=== PATIENT | female | born 1990 | race Caucasian/White ===

== ENCOUNTER 2017-09-29 22:04 | Emergency (ER) | payer BC, OTHER ==
[~2017-09-29] VITALS: Ht 162.6 cm; Wt 49.9 kg
--- NOTE | 2017-09-29 23:00 | NUR ---
PT BIBSELF C/O "TONYA LOWER ABD PAIN X1 WEEKS"; DENIES URINARY SX'S/FEVER/N/V. PT AOX3 RR EVEN AND UNLABORED. NO SOB NOTED. NAD NOTED. NO NVD AT THIS TIME. PT GOWNED AND PLACED ON MONITOR. PENELOPE TARANGO AT BEDSIDE FOR EVAL. URINE COLLECTED.
[2017-09-29 23:27] LABS: BASOPHILS # (AUTO) 0.1 /CMM (0.0-0.2); BASOPHILS % (AUTO) 0.9 % (0.0-2.0); EOSINOPHILS % (AUTO) 1.7 % (0.0-6.0); HEMATOCRIT 38 % (33-45); HEMOGLOBIN 12.8 g/dL (11.5-14.8); LYMPHOCYTES # (AUTO) 2.5 /CMM (0.8-4.8); LYMPHOCYTES % (AUTO) 33.4 % (20.0-44.0); MEAN CORPUSCULAR HGB CONC 34 g/dl (31.0-36.0); MEAN CORPUSCULAR VOLUME 90 fL (82-100); MONOCYTES # (AUTO) 0.7 /CMM (0.1-1.30); MONOCYTES % (AUTO) 8.8 % (2.0-12.0); NEUTROPHILS # (AUTO) 4.1 /CMM (1.8-8.9); NEUTROPHILS % (AUTO) 55.2 % (43.0-81.0); PLATELET COUNT (AUTO) 218 /CMM (150-450); RDW COEFFICIENT OF VARIATION 13.2 (11.5-15.0); RED BLOOD CELL COUNT(AUTO) 4.19 MIL/uL (4.0-5.2); WHITE BLOOD COUNT (AUTO) 7.4 K/uL (4.3-11.0)
[2017-09-29 23:38] LABS: CALCIUM, SERUM 8.8 mg/dL (8.5-10.1); CREATININE 0.9 mg/dL (0.6-1.3); POTASSIUM 4.4 mmol/L (3.5-5.1)
[2017-09-29 23:45] LABS: ALBUMIN 3.7 g/dL (3.4-5.0); BILIRUBIN,DIRECT 0.3 mg/dL (0.0-0.2); BILIRUBIN,TOTAL 1.5 mg/dL (0.2-1.0); TOTAL PROTEIN, SERUM 6.9 g/dL (6.4-8.2)
[2017-09-29 23:56] LABS: APPEARANCE,URINE CLEAR (CLEAR); BILIRUBIN,URINE NEGATIVE (NEGATIVE); BLOOD, URINE TRACE-INTA Ery/uL (NEGATIVE); COLOR,URINE YELLOW (YELLOW); KETONES,URINE NEGATIVE (NEGATIVE); LEUKOCYTE ESTERASE ,URINE NEGATIVE (NEGATIVE); NITRITE, URINE NEGATIVE (NEGATIVE); PROTEIN,URINE NEGATIVE (NEGATIVE); UGLUCOSE NEGATIVE (NEGATIVE); UROBILINOGEN,URINE 0.2 EU/dL (0.2)
[2017-09-30 00:08] LABS: BACTERIA,URINE None seen /HPF (None Seen); SQUAMOUS EPITHELIAL CELL,UR Few /HPF (None Seen); WBC,URINE 0-2 /HPF (0-3)
--- NOTE | 2017-09-30 00:25 | NUR ---
Patient discharged to home in stable condition. Written and verbal after care instructions given. Patient verbalizes understanding of instruction. PT AMBULATED OUT WITH A STEADY GAIT. VSS. NAD NOTED. PT TO F/U WITH PMD.
[2017-09-30 00:27] VITALS: BP 106/66
== END 2017-09-30 00:28 | disposition home or self-care (01) ==
LOC: ER 22:06
DX: R10.30 Lower abdominal pain, unspecified (principal); R14.0 Abdominal distension (gaseous)
CPT/HCPCS: 36415; 80048-TC; 80076-TC; 81000-TC; 83690-TC; 84703-TC; 85025-TC; 87086-TC; A4606; Z7610

== ENCOUNTER 2022-09-04 15:05 | Emergency (ER) | payer BC, MEDICAID ==
[~2022-09-04] VITALS: Ht 162.6 cm; Wt 54.4 kg
--- NOTE | 2022-09-04 15:08 | NUR ---
Patient AOx4 able to express her concerns, per pts consent, boyfriend at bedside. Patient with no signs of distress. Discussed plan of care, pt verbalized agreement. All safety precautions taken.
--- NOTE | 2022-09-04 15:21 | NUR ---
PT WALKED INTO ER C/O MIGRAINE HEADACHES X 2.5 WEEKS. PT DENIES ANY VOMITING BUT ALSO C/O NAUSEA AND LIGHT SENSITIVITY. PT AMBULATED TO ROOM WITH STEADY GAIT AND CONNECTED TO MONITOR. BREATHING EVEN AND UNLABORED. AAOX4. AWAITING MD LUNA.
[2022-09-04] MEDS ORDERED: DEXAMETHASONE SOD PHOSPHATE 10 MG/ML VIAL IV ONE (16:00)
[2022-09-04] MEDS ORDERED: KETOROLAC TROMETHAMINE INJ 30 MG/ML VIAL IV ONE (16:00)
[2022-09-04] MEDS ORDERED: IV NS 0.9% 1,000 ML BAG IV ONE (16:00)
[2022-09-04] MEDS ORDERED: PROCHLORPERAZINE EDISYLATE 10 MG/2 ML VIAL IVP ONE (16:00)
[2022-09-04] MEDS ORDERED: diphenhydrAMINE HCL 50 MG/ML VIAL IV ONE (16:00)
--- NOTE | 2022-09-04 16:01 | NUR ---
Patient signed waiver, per pts request, would like to move forward with imaging testing.
[2022-09-04] MEDS ORDERED: DEXAMETHASONE SOD PHOSPHATE 10 MG/ML VIAL ONE (16:13)
[2022-09-04] MEDS ORDERED: PROCHLORPERAZINE EDISYLATE 10 MG/2 ML VIAL ONE (16:13)
[2022-09-04] MEDS ORDERED: KETOROLAC TROMETHAMINE INJ 30 MG/ML VIAL ONE (16:14)
[2022-09-04] MEDS ORDERED: diphenhydrAMINE HCL 50 MG/ML VIAL ONE (16:15)
--- NOTE | 2022-09-04 16:50 | NUR ---
Administered medications as prescribed, verified meds with 2nd RN. Patient tolerated well.
[2022-09-04] MEDS ORDERED: KETO10TA2 PO (17:48)
[2022-09-04] MEDS ORDERED: PROC10TA29 PO (17:48)
[2022-09-04 18:09] VITALS: BP 110/74
== END 2022-09-04 18:09 | disposition home or self-care (01) ==
LOC: ER 15:12
DX: G43.909 Migraine, unspecified, not intractable, without status migrainosus (principal); Z79.899 Other long term (current) drug therapy; Z88.1 Allergy status to other antibiotic agents
CPT/HCPCS: 99285; 96374; 96375; 70450; 96361; J0780; J1100; J1200; J1885; J7030